=== PATIENT | female | born 1945 | race Caucasian/White ===

== ENCOUNTER 2018-09-30 23:34 | Inpatient (IN) | payer MEDICARE, MEDICAID ==
[~2018-09-30 23:34] MED LIST: Sodium Chloride 0.9% 10 ML Syringe FLUSH PRN
[2018-09-30] MEDS ORDERED: Ondansetron 4 MG/2 ML SDV IVPUSH ONE (23:40)
[2018-09-30] MEDS ORDERED: Sodium Chloride 0.9% 1,000 ML IV ONE (23:40)
--- NOTE | 2018-10-01 00:03 | EDM.PDOC ---
ED HPI GENERAL MEDICAL PROBLEM - General Chief Complaint: Gastrointestinal Problem Stated Complaint: vomiting Time Seen by Provider: 09/30/18 23:34 Source of Information: Reports: Patient, EMS, EMS Notes Reviewed, Skilled Nursing Records, Old Records, RN Notes Reviewed History Limitations: Reports: Language Barrier, Physical Impairment - History of Present Illness INITIAL COMMENTS - FREE TEXT/NARRATIVE: Pt. presents to ER via EMS. She is a resident at the [facility] with severe CP and presents with cough and vomiting. Staff states that it is not uncommon for the patient to vomit once or twice per day, but they noted what they thought to be rosangela blood in her vomit, and also state that she has had coffee ground emesis as well. Staff states that this all started at 1930 this evening. She has increased cough and noisy breathing, and feel she may have aspirated. She is unable to communicate and subsequently unable to offer any complaints. Staff states that she is otherwise behaving normally. Staff at [facility] relates that the patient had a large BM this AM, and apparently it was normal. Onset: Today Location: Reports: Abdomen - Related Data Allergies Allergy/AdvReac Type Severity Reaction Status Date / Time red (food color) Allergy Cannot Verified 09/30/18 23:37 Remember Home Meds: Home Meds Bisacodyl 10 mg RC ASDIRECTED PRN 08/06/13 [History] Budesonide [Pulmicort] 1 ampule INH BID 08/06/13 [History] Metoclopramide [Reglan] 10 mg PO QID 08/06/13 [History] Montelukast [Singulair] 10 mg PO DAILY 08/06/13 [History] Multivitamin with Minerals [Multivitamins with Minerals] 1 each PO DAILY [History] PHENobarbital 97.2 mg PO DAILY 08/06/13 [History] Sennosides [Senokot] 8.6 mg PO BID 08/06/13 [History] Acetaminophen [Acetaminophen 8 Hour] 650 mg PO Q4HR PRN 10/01/18 [History] Albuterol/Ipratropium [DuoNeb 3.0-0.5 MG/3 ML] 3 ml INH Q4HR PRN 10/01/18 [ History] Albuterol/Ipratropium [DuoNeb 3.0-0.5 MG/3 ML] 3 ml INH QID 10/01/18 [History] Bisacodyl 5 mg PO ASDIRECTED PRN 10/01/18 [History] Dextran 70/Hypromellose [Artificial Tears] 1 each OP ASDIRECTED PRN 10/01/18 [ History] Dimethicone [Cavilon Durable Barrier] 92 gm TP BID 10/01/18 [History] Magnesium Hydroxide [Milk of Magnesia] 15 ml PO ASDIRECTED PRN 10/01/18 [History ] Polyethylene Glycol 3350 [MiraLAX] 17 gm PO DAILY 10/01/18 [History] Ranitidine [Zantac] 150 mg PO BID 10/01/18 [History] ED ROS GENERAL - Review of Systems Review Of Systems: Unable To Obtain ED EXAM, GENERAL - Physical Exam Exam: See Below Exam Limited By: No Limitations General Appearance: Alert, WD/WN, No Apparent Distress Head: Atraumatic, Normocephalic Neck: Normal Inspection, Supple, Full Range of Motion Respiratory/Chest: No Respiratory Distress, No Accessory Muscle Use, Decreased Breath Sounds, Wheezing Cardiovascular: Normal Peripheral Pulses, Regular Rate, Rhythm, No Edema, No JVD , No Murmur Peripheral Pulses: 4+: Radial (R) GI/Abdominal: Soft, No Organomegaly, Distended, Rigid, Other (diminished BS, protuberant abdomen.) Rectal (Female) Exam: Normal Exam, Normal Rectal Tone, Heme + Stool Back Exam: Normal Inspection, Full Range of Motion Extremities: Normal Inspection, Normal Range of Motion, Non-Tender, No Pedal Edema, Normal Capillary Refill Neurological: Other (Unable to communicate. Withdraws from pain. Profound intellectual disabilities.) Skin Exam: Warm, Dry, Intact, Normal Color, No Rash Lymphatic: No Adenopathy Course - Vital Signs Last Recorded V/S: Last Vital Signs Temp 36.5 C 09/30/18 23:37 Pulse 102 H 09/30/18 23:37 Resp 24 H 09/30/18 23:37 BP 154/79 H 09/30/18 23:37 Pulse Ox 94 L 09/30/18 23:37 - Orders/Labs/Meds Orders: Active Orders 24 hr Category Date Time Status Chest 1V Frontal [CR] Stat Exams 09/30/18 23:37 Taken Chest Abdomen Pelvis w Cont [CT] Stat Exams 09/30/18 23:38 Ordered CULTURE BLOOD [BC] Stat Lab 09/30/18 23:42 Received CULTURE BLOOD [BC] Stat Lab 09/30/18 23:42 Results GASTRO OCCULT BLOOD,POC [POC] Stat Lab 10/01/18 00:33 Ordered Sodium Chloride 0.9% [Normal Saline] 1,000 ml Med 09/30/18 23:40 Active IV ONETIME Sodium Chloride 0.9% [Saline Flush] Med 09/30/18 23:34 Active 10 ml FLUSH ASDIRECTED PRN Blood Culture x2 Reflex Set [OM.PC] Stat Oth 09/30/18 23:41 Ordered Peripheral IV Insertion Adult [OM.PC] Routine Oth 09/30/18 23:35 Ordered Medication Orders Sodium Chloride (Normal Saline) 1,000 mls @ 125 mls/hr IV ONETIME ONE Stop: 10/01/18 07:39 Last Admin: 10/01/18 00:05 Dose: 125 mls/hr Sodium Chloride (Saline Flush) 10 ml FLUSH ASDIRECTED PRN PRN Reason: Keep Vein Open Labs: Laboratory Tests 10/01/18 10/01/18 10/01/18 Range/Units 00:04 00:04 00:04 WBC 11.5 H (4.0-10.0) x10^3/uL RBC 4.81 (4.00-5.50) x10^6/uL Hgb 14.6 D (12.0-16.0) g/dL Hct 44.6 (33.0-47.0) % MCV 92.7 D (78.0-93.0) fL MCH 30.4 (26.0-32.0) pg MCHC 32.7 (32.0-36.0) g/dL RDW Coeff of Viola 13.9 (10.0-15.0) % Plt Count 280 (130-400) x10^3/uL Neut % (Auto) 91.7 H (50.0-80.0) % Lymph % (Auto) 5.1 L (25.0-50.0) % Mckenzie % (Auto) 2.7 (2.0-11.0) % Eos % (Auto) 0.3 (0.0-4.0) % Baso % (Auto) 0.2 (0.2-1.2) % PT 10.8 (10.0-12.8) SEC INR 1.0 L (2.0-3.5) Sodium 144 (136-145) mmol/L Potassium 4.3 (3.5-5.1) mmol/L Chloride 105 (98-107) mmol/L Carbon Dioxide 27 (21-32) mmol/L Anion Gap 16.3 (10-20) mmol/L BUN 21 H (7-18) mg/dL Creatinine 0.6 (0.55-1.02) mg/dL Est Cr Clr Drug Dosing TNP Estimated GFR (MDRD) > 60 Glucose 145 H (74-106) mg/dL Lactic Acid (0.4-2.0) mmol/L Calcium 9.6 (8.5-10.1) mg/dL Corrected Calcium 10.24 H (8.5-10.1) mg/dL Phosphorus 3.1 (2.6-4.7) mg/dL Magnesium 2.1 (1.8-2.4) mg/dL Total Bilirubin 0.3 (0.2-1.0) mg/dL AST 32 (15-37) U/L ALT 78 H (14-59) U/L Alkaline Phosphatase 173 H (46-116) U/L C-Reactive Protein 1.3 H (<=0.9) mg/dL Total Protein 8.1 (6.4-8.2) g/dL Albumin 3.2 L (3.4-5.0) g/dL Globulin 4.9 Albumin/Globulin Ratio 0.65 10/01/18 Range/Units 00:04 WBC (4.0-10.0) x10^3/uL RBC (4.00-5.50) x10^6/uL Hgb (12.0-16.0) g/dL Hct (33.0-47.0) % MCV (78.0-93.0) fL MCH (26.0-32.0) pg MCHC (32.0-36.0) g/dL RDW Coeff of Viola (10.0-15.0) % Plt Count (130-400) x10^3/uL Neut % (Auto) (50.0-80.0) % Lymph % (Auto) (25.0-50.0) % Mckenzie % (Auto) (2.0-11.0) % Eos % (Auto) (0.0-4.0) % Baso % (Auto) (0.2-1.2) % PT (10.0-12.8) SEC INR (2.0-3.5) Sodium (136-145) mmol/L Potassium (3.5-5.1) mmol/L Chloride (98-107) mmol/L Carbon Dioxide (21-32) mmol/L Anion Gap (10-20) mmol/L BUN (7-18) mg/dL Creatinine (0.55-1.02) mg/dL Est Cr Clr Drug Dosing Estimated GFR (MDRD) Glucose (74-106) mg/dL Lactic Acid 1.0 (0.4-2.0) mmol/L Calcium (8.5-10.1) mg/dL Corrected Calcium (8.5-10.1) mg/dL Phosphorus (2.6-4.7) mg/dL Magnesium (1.8-2.4) mg/dL Total Bilirubin (0.2-1.0) mg/dL AST (15-37) U/L ALT (14-59) U/L Alkaline Phosphatase (46-116) U/L C-Reactive Protein (<=0.9) mg/dL Total Protein (6.4-8.2) g/dL Albumin (3.4-5.0) g/dL Globulin Albumin/Globulin Ratio Meds: Medications Generic Name Dose Route Start Last Admin Trade Name Freq PRN Reason Stop Dose Admin Sodium Chloride 1,000 mls @ 125 mls/hr 09/30/18 23:40 10/01/18 00:05 Normal Saline IV 10/01/18 07:39 125 mls/hr ONETIME ONE Administration Sodium Chloride 10 ml 09/30/18 23:34 Saline Flush FLUSH ASDIRECTED PRN Keep Vein Open Discontinued Medications Generic Name Dose Route Start Last Admin Trade Name Freq PRN Reason Stop Dose Admin Iopamidol 100 ml 10/01/18 00:55 10/01/18 01:13 Isovue-300 (61%) IVPUSH 10/01/18 00:56 100 ml ONETIME ONE Administration Ondansetron HCl 4 mg 09/30/18 23:40 10/01/18 00:29 Zofran IVPUSH 09/30/18 23:41 4 mg ONETIME ONE Administration - Radiology Interpretation Free Text/Narrative:: Elevated L hemidiaphragm with gastric distention of colon. No obvious infiltrate. Atelectasis of L lower lobe. CT chest, abdomen and pelvis obtained. There was evidence of gastroparesis, colonic ileus, sliding hiatal hernia, diffuse thickening of the distal esophagus. Departure - Departure Time of Disposition: 02:20 Disposition: DC/Tfer to Acute Hospital 02 Clinical Impression: Ileus - Discharge Information Forms: ED Department Discharge - Problem List Review Problem List Initiated/Reviewed/Updated: Yes - My Orders Last 24 Hours: My Active Orders 09/30/18 23:34 Sodium Chloride 0.9% [Saline Flush] 10 ml FLUSH ASDIRECTED PRN 09/30/18 23:35 Peripheral IV Insertion Adult [OM.PC] Routine 09/30/18 23:37 Chest 1V Frontal [CR] Stat 09/30/18 23:38 Chest Abdomen Pelvis w Cont [CT] Stat 09/30/18 23:40 Sodium Chloride 0.9% [Normal Saline] 1,000 ml IV ONETIME 09/30/18 23:41 Blood Culture x2 Reflex Set [OM.PC] Stat 09/30/18 23:42 CULTURE BLOOD [BC] Stat CULTURE BLOOD [BC] Stat 10/01/18 00:33 GASTRO OCCULT BLOOD,POC [POC] Stat - Assessment/Plan Admission H&P: Please use this note as an admission H&P Last 24 Hours: My Active Orders 09/30/18 23:34 Sodium Chloride 0.9% [Saline Flush] 10 ml FLUSH ASDIRECTED PRN 09/30/18 23:35 Peripheral IV Insertion Adult [OM.PC] Routine 09/30/18 23:37 Chest 1V Frontal [CR] Stat 09/30/18 23:38 Chest Abdomen Pelvis w Cont [CT] Stat 09/30/18 23:40 Sodium Chloride 0.9% [Normal Saline] 1,000 ml IV ONETIME 09/30/18 23:41 Blood Culture x2 Reflex Set [OM.PC] Stat 09/30/18 23:42 CULTURE BLOOD [BC] Stat CULTURE BLOOD [BC] Stat 10/01/18 00:33 GASTRO OCCULT BLOOD,POC [POC] Stat Plan: Will admit patient acutely. Dr. Velazquez will see in AM and likely pass to Dr. Summers. Will continue maintenance fluids. She had one episode of emesis on admission, but none for several hours, so we will hold NG tube for now. She will be NPO. There is no evidence of high grade obstruction noted. Repeat labs tomorrow AM. There is no obvious infectious process noted in lungs or abdomen and she is afebrile so we will hold antibiotics. Pt. is a code 2 DNR/DNI.
[2018-10-01 00:40] LABS: CHLORIDE,CL 105 mmol/L (98-107); SODIUM,NA 144 mmol/L (136-145)
[2018-10-01 00:42] LABS: ANION GAP 16.3 mmol/L (10-20)
[2018-10-01] MEDS ORDERED: Iopamidol 612 MG/ML 100 ML Bottle IVPUSH ONE (00:55)
[2018-10-01] MEDS ORDERED: Acetaminophen 325 MG Tab PO PRN ×2 (02:48→10:10)
[2018-10-01] MEDS ORDERED: Albuterol/Ipratropium 3.0-0.5 MG/3 ML Neb Soln INH PRN (02:48)
[2018-10-01] MEDS: Metoclopramide 10 MG/2 ML SDV IVPUSH SCH ×4 (03:11→20:10)
[2018-10-01] MEDS: Pantoprazole 40 MG Vial IVPUSH SCH ×2 (03:15→15:11)
[2018-10-01] MEDS ORDERED: Morphine 4 MG/ML Syringe IVPUSH ONE (04:02)
[2018-10-01] MEDS: NS + KCl 20mEq/L 1,000 ML IV SCH ×2 (07:13→15:02)
[2018-10-01] MEDS: Albuterol/Ipratropium 3.0-0.5 MG/3 ML Neb Soln INH SCH ×4 (07:13→20:08)
--- NOTE | 2018-10-01 07:56 | CR ---
[id number] RAD/RAD Chest PA or AP 1V EXAM: RAD Chest PA or AP 1V INDICATION: WHEEZING, ASPIRATION? COMPARISON: 2013. DISCUSSION: Asymmetric elevated left hemidiaphragm resulting in left lung base vascular crowding and atelectasis. Within limitations of severe scoliosis and elevated left hemidiaphragm, no evidence of aspiration. There is possible cardiomegaly with mild central vascular congestion. Colon demonstrates gaseous distention. IMPRESSION: As above. Souleymane Sierra MD 10/01/18 0755 Thank you for allowing us to participate in the care of your patient.
--- NOTE | 2018-10-01 08:35 | CT ---
[id number] CT/CT Chest Abdomen Pelvis W IV EXAM: CT Chest Abdomen Pelvis W IV CLINICAL DATA: HEMATEMESIS, DIMINISHED BOWEL SOUNDS COMPARISON STUDY: July 2013. FINDINGS: Chest, abdomen, and pelvis: 12 x 9 x 5 mm solid noncalcified left lower lobe pulmonary nodule (series 2 image 33). Finding is nonspecific in etiology. Bibasal subsegmental atelectasis and/or scarring. No mediastinal or hilar lymphadenopathy. Moderate circumferential thickening throughout the distal aspect of the esophagus extending to the gastroesophageal junction. Stomach is dilated and distended with air-fluid level. Colon demonstrates marked gaseous distention without evidence of obstructing mass. No evidence of a small bowel obstruction. No pneumatosis or pneumoperitoneum. Cholelithiasis without evidence of acute cholecystitis. Liver, spleen, pancreas, and adrenal glands are unremarkable. 4 mm calculus in the proximal left ureter just distal to the UPJ. No evidence of obstruction. Kidneys are otherwise unremarkable. Trace free fluid in the dependent recess of the pelvis. Bones and soft tissues: Advanced dextroscoliosis. 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 No acute fracture, compression deformity, or osseous lesion. IMPRESSION: Moderate circumferential wall thickening in the distal esophagus, nonspecific but suggesting esophagitis. Gaseous distention and dilation of the stomach with an air-fluid level. Gaseous distention of the colon without obstructing mass identified. Trace free fluid in the dependent recess of the pelvis, nonspecific in etiology. Other findings are described above. Souleymane Sierra MD 10/01/18 0833 Thank you for allowing us to participate in the care of your patient.
[2018-10-01] MEDS: PHENobarbital 64.8 MG Tab PO SCH (09:11)
[2018-10-01] MEDS ORDERED: Budesonide 0.5 MG/2 ML Neb Susp INH SCH (09:45)
[2018-10-01] MEDS ORDERED: Magnesium Hydroxide 400 MG/5 ML Susp 30 ML Cup PO PRN (10:10)
[2018-10-01] MEDS ORDERED: Dextran 70/Hypromellose/PF Ophth Soln 0.9 ML UD EYELF PRN (10:10)
[2018-10-01] MEDS ORDERED: Bisacodyl 5 MG Tab PO PRN (10:10)
[2018-10-01] MEDS ORDERED: Bisacodyl 10 MG Supp RECTAL PRN ×3 (10:10→11:45)
--- NOTE | 2018-10-01 10:21 | PCM.HP ---
H&P History of Present Illness - General Date of Service: 10/01/18 Admit Problem/Dx: Admission Diagnosis/Problem Admission Diagnosis/Problem Ileus Source of Information: EMS, Long-Term Records, Provider History Limitations: Reports: Physical Impairment - History of Present Illness Initial Comments - Free Text/Narative: Chief complaint: Vomiting History of present illness: Patient was sent from retirement to ER for possible hematemesis. She vomits and coughs a lot at baseline. She has profound intellectual disability plus dementia and cerebral palsy. She been throwing up a bit more in the noticed a little bit of blood and this appeared bit brown. No fever or diarrhea or change otherwise in her baseline. On arrival in the ER they did Hemoccult of gastric and rectal contents which was negative for blood. She was not anemic. Vomiting seem to slow in the ER with some treatment there. She had CT abdomen and chest pelvis which were pretty unrevealing for any real acute source. She had an ileus which appears been present on past films. She has gastroparesis which also looks like it's chronic is she is on Reglan four times a day at baseline. There is diffuse thickening of the distal esophagus NOS. Past medical history: Profound intellectual disability, seizure disorder, dementia, osteoporosis, hiatal hernia, past fractures, endometrial carcinoma, decubitus ulcer, constipation, cerebral palsy, asthma, Medication list unresolved in EPIC: Pulmicort, Atrovent, Proventil, Reglan, phenobarbital, Atrovent, Zantac, Vanda lax, Singulair, and teaser, senna, Asmanex , Flovent, takes citrate, DuoNeb, Prilosec, Duca lax, milk of magnesia. Allergies: Red dye Social history: half-way resident, nonsmoker. Family history: Noncontributory Review of systems: Unable to obtain beyond above. Physical exam: Vital signs are normal, she is laying in bed position on her right side. She is nonverbal. Eyes are open spontaneously, no acute distress, oral mucosa is pink and a bit dry. There is a bit of brown material increases of her tongue. I don't see any gross oral lacerations. Heart and lungs are clear to auscultation, abdomen mild distended, appears nontender and a nonverbal patient. Chimneys warm well perfused, trace edema. Assessment and plan: Report of possible hematemesis. Hemoglobin is stable, Hemoccult was negative, appears to be from some local trauma possibly in the mouth. Recheck CBC in a.m. , monitor for any recurrence. Has a seizure history but no recent seizure activity noted as cause of new oral trauma. Continue acid suppressing medicine for some esophagitis NOS seen by CT. Regarding vomiting it appears improved. Resume home Reglan. Appears to have vomiting, gastroparesis and maybe chronic ileus at baseline. Advance diet to clear liquids, continue maintenance fluids for now, advance to her baseline pure diet as tolerated. Recheck chemistry in a.m. - Related Data Allergies/Adverse Reactions: Allergies Allergy/AdvReac Type Severity Reaction Status Date / Time red dye Allergy Unknown Other Verified 10/01/18 09:24 Home Medications: Home Meds Bisacodyl 10 mg RC DAILY PRN 08/06/13 [History] Metoclopramide [Reglan] 10 mg PO QID 08/06/13 [History] Montelukast [Singulair] 10 mg PO DAILY 08/06/13 [History] Multivitamin with Minerals [Multivitamins with Minerals] 1 each PO DAILY [History] PHENobarbital 97.2 mg PO DAILY 08/06/13 [History] Sennosides [Senokot] 17.2 mg PO BID 08/06/13 [History] Acetaminophen [Tylenol] 650 mg PO Q4H PRN 10/01/18 [History] Albuterol/Ipratropium [DuoNeb 3.0-0.5 MG/3 ML] 3 ml INH Q4HR PRN 10/01/18 [ History] Albuterol/Ipratropium [DuoNeb 3.0-0.5 MG/3 ML] 3 ml INH QID 10/01/18 [History] Bisacodyl 5 mg PO DAILY PRN 10/01/18 [History] Bisacodyl [Laxative Suppository] 10 mg RC Q48H PRN 10/01/18 [History] Budesonide [Pulmicort] 0.5 mg NEB BID 10/01/18 [History] Dextran 70/Hypromellose [Artificial Tears] 1 - 2 drop EYELF ASDIRECTED PRN 10/01 [History] Magnesium Hydroxide [Milk of Magnesia] 15 ml PO Q3D PRN 10/01/18 [History] Miconazole [Miconazole 2% Crm] 1 applic TOP BID 10/01/18 [History] Polyethylene Glycol 3350 [MiraLAX] 17 gm PO DAILY 10/01/18 [History] Ranitidine [Zantac] 150 mg PO BID 10/01/18 [History] Past Medical History Respiratory History: Reports: Asthma Gastrointestinal History: Reports: Chronic Constipation, Other (See Below) Other Gastrointestinal History: dysphagia, dyspepsia Musculoskeletal History: Reports: Osteoporosis Neurological History: Reports: Cerebral Palsy, Seizure, Other (See Below) Other Neuro History: dementia, profound intellectual disabilities, convulsions Social & Family History - Family History Family Medical History: Noncontributory - Tobacco Use Smoking Status *Q: Current Status Unknown Tobacco Use Comment: phucwjosé miguel; patient has profound learning disability from [employer] Second Hand Smoke Exposure: No - Caffeine Use Caffeine Use: Reports: None - Recreational Drug Use Recreational Drug Use: No H&P Review of Systems - Review of Systems: Review Of Systems: See Below Exam - Exam Exam: See Below - Vital Signs Vital Signs: Last Vital Signs Temp 37.1 C 10/01/18 05:59 Pulse 102 H 10/01/18 05:59 Resp 20 10/01/18 05:59 BP 139/59 L 10/01/18 05:59 Pulse Ox 91 L 10/01/18 07:21 Weight: 49.243 kg - Patient Data Lab Results Last 24 hrs: Laboratory Results - last 24 hr 10/01/18 10/01/18 10/01/18 Range/Units 00:04 00:04 00:04 WBC 11.5 H (4.0-10.0) x10^3/uL RBC 4.81 (4.00-5.50) x10^6/uL Hgb 14.6 D (12.0-16.0) g/dL Hct 44.6 (33.0-47.0) % MCV 92.7 D (78.0-93.0) fL MCH 30.4 (26.0-32.0) pg MCHC 32.7 (32.0-36.0) g/dL RDW Coeff of Viola 13.9 (10.0-15.0) % Plt Count 280 (130-400) x10^3/uL Neut % (Auto) 91.7 H (50.0-80.0) % Lymph % (Auto) 5.1 L (25.0-50.0) % [place] % (Auto) 2.7 (2.0-11.0) % Eos % (Auto) 0.3 (0.0-4.0) % Baso % (Auto) 0.2 (0.2-1.2) % Add Manual Diff PT 10.8 (10.0-12.8) SEC INR 1.0 L (2.0-3.5) Sodium 144 (136-145) mmol/L Potassium 4.3 (3.5-5.1) mmol/L Chloride 105 (98-107) mmol/L Carbon Dioxide 27 (21-32) mmol/L Anion Gap 16.3 (10-20) mmol/L BUN 21 H (7-18) mg/dL Creatinine 0.6 (0.55-1.02) mg/dL Est Cr Clr Drug Dosing TNP Estimated GFR (MDRD) > 60 Glucose 145 H (74-106) mg/dL Lactic Acid (0.4-2.0) mmol/L Calcium 9.6 (8.5-10.1) mg/dL Corrected Calcium 10.24 H (8.5-10.1) mg/dL Phosphorus 3.1 (2.6-4.7) mg/dL Magnesium 2.1 (1.8-2.4) mg/dL Total Bilirubin 0.3 (0.2-1.0) mg/dL AST 32 (15-37) U/L ALT 78 H (14-59) U/L Alkaline Phosphatase 173 H (46-116) U/L C-Reactive Protein 1.3 H (<=0.9) mg/dL Total Protein 8.1 (6.4-8.2) g/dL Albumin 3.2 L (3.4-5.0) g/dL Globulin 4.9 Albumin/Globulin Ratio 0.65 10/01/18 10/01/18 10/01/18 Range/Units 00:04 06:21 06:21 WBC 10.8 H (4.0-10.0) x10^3/uL RBC 4.40 (4.00-5.50) x10^6/uL Hgb 13.3 (12.0-16.0) g/dL Hct 41.2 (33.0-47.0) % MCV 93.6 H (78.0-93.0) fL MCH 30.2 (26.0-32.0) pg MCHC 32.3 (32.0-36.0) g/dL RDW Coeff of Viola 13.9 (10.0-15.0) % Plt Count 228 (130-400) x10^3/uL Neut % (Auto) 89.0 H (50.0-80.0) % Lymph % (Auto) 6.0 L (25.0-50.0) % [place] % (Auto) 5.0 (2.0-11.0) % Eos % (Auto) 0.0 (0.0-4.0) % Baso % (Auto) 0.0 L (0.2-1.2) % Add Manual Diff Yes PT (10.0-12.8) SEC INR (2.0-3.5) Sodium (136-145) mmol/L Potassium (3.5-5.1) mmol/L Chloride (98-107) mmol/L Carbon Dioxide (21-32) mmol/L Anion Gap (10-20) mmol/L BUN (7-18) mg/dL Creatinine (0.55-1.02) mg/dL Est Cr Clr Drug Dosing Estimated GFR (MDRD) Glucose (74-106) mg/dL Lactic Acid 1.0 0.7 (0.4-2.0) mmol/L Calcium (8.5-10.1) mg/dL Corrected Calcium (8.5-10.1) mg/dL Phosphorus (2.6-4.7) mg/dL Magnesium (1.8-2.4) mg/dL Total Bilirubin (0.2-1.0) mg/dL AST (15-37) U/L ALT (14-59) U/L Alkaline Phosphatase (46-116) U/L C-Reactive Protein (<=0.9) mg/dL Total Protein (6.4-8.2) g/dL Albumin (3.4-5.0) g/dL Globulin Albumin/Globulin Ratio Result Diagrams: 10/01/18 06:21 10/01/18 00:04 Jovany Results Last 24 hrs: Microbiology 10/01/18 00:11 Anaerobic Blood Culture - Final Blood - Venous - Lab Draw Problem List Initiated/Reviewed/Updated: Yes Orders Last 24hrs: Active Orders 24 hr Category Date Time Status Patient Status [ADT] Routine ADT 10/01/18 02:19 Active Bedrest [RC] 08,20 Care 10/01/18 02:46 Active Intake and Output [RC] QSHIFT Care 10/01/18 02:46 Active Vital Signs [RC] 06,10,14,18,22,02 Care 10/01/18 02:46 Active Clear Liquid Diet [DIET] Diet 10/01/18 Lunch Ordered Nothing Per Oral Diet [DIET] Diet 10/01/18 Breakfast Active BASIC METABOLIC PANEL,BMP [CHEM] AM Lab 10/02/18 05:11 Ordered CBC WITH AUTO DIFF [HEME] AM Lab 10/02/18 05:11 Ordered CULTURE BLOOD [BC] Stat Lab 09/30/18 23:42 Received CULTURE BLOOD [BC] Stat Lab 09/30/18 23:42 Results CULTURE MRSA SURVEY [RM] Routine Lab 10/01/18 04:46 Received Acetaminophen [Tylenol] Med 10/01/18 10:10 Ordered 650 mg PO Q4H PRN Acetaminophen [Tylenol] Med 10/01/18 02:48 Active 650 mg PO Q4HR PRN Albuterol/Ipratropium [DuoNeb 3.0-0.5 MG/3 ML] Med 10/01/18 02:48 Active 3 ml INH Q4H PRN Albuterol/Ipratropium [DuoNeb 3.0-0.5 MG/3 ML] Med 10/01/18 07:00 Active 3 ml INH QIDRT Bisacodyl [Dulcolax] Med 10/01/18 10:10 Ordered 10 mg .XX DAILY PRN Bisacodyl [Dulcolax] Med 10/01/18 10:10 Ordered 10 mg .XX Q48H PRN Bisacodyl [Dulcolax] Med 10/01/18 10:10 Ordered 5 mg PO DAILY PRN Budesonide [Pulmicort] Med 10/01/18 11:00 Active 0.5 mg INH BIDRT Budesonide [Pulmicort] Med 10/01/18 20:00 Ordered 0.5 mg NEB BID Dextran 70/Hypromellose [Artificial Tears] Med 10/01/18 10:10 Ordered 1 - 2 drop EYELF ASDIRECTED PRN Magnesium Hydroxide [Milk of Magnesia] Med 10/01/18 10:10 Ordered 15 ml PO Q3D PRN Metoclopramide [Reglan] Med 10/01/18 12:00 Ordered 10 mg PO QID Metoclopramide [Reglan] Med 10/01/18 03:00 Active 5 mg IVPUSH Q6H Miconazole [Miconazole 2% Crm] Med 10/01/18 20:00 Ordered 1 applic TOP BID Miconazole [Miconazole 2% Vaginal] Med 10/01/18 09:45 Active 0 gm TOP BID Montelukast [Singulair] Med 10/02/18 08:00 Ordered 10 mg PO DAILY Multivitamin with Minerals [Multivitamins with Minerals Med 10/02/18 08:00 Ordered ] 1 each PO DAILY NS + KCl 20mEq/L [Normal Saline with 20 mEq KCl] 1,000 Med 10/01/18 03:00 Active ml IV ASDIRECTED PHENobarbital Med 10/01/18 08:00 Active 97.2 mg PO DAILY Pantoprazole [ProTONIX IV] Med 10/01/18 03:00 Active 40 mg IVPUSH Q12H Polyethylene Glycol 3350 [MiraLAX] Med 10/02/18 08:00 Ordered 17 gm PO DAILY Ranitidine [Zantac] Med 10/01/18 20:00 Ordered 150 mg PO BID Sennosides [Senna] Med 10/01/18 20:00 Ordered 17.2 mg PO BID Sodium Chloride 0.9% [Saline Flush] Med 09/30/18 23:34 Active 10 ml FLUSH ASDIRECTED PRN Blood Culture x2 Reflex Set [OM.PC] Stat Oth 09/30/18 23:41 Ordered Peripheral IV Insertion Adult [OM.PC] Routine Oth 09/30/18 23:35 Ordered Medication Orders Acetaminophen (Tylenol) 650 mg PO Q4HR PRN PRN Reason: Pain Acetaminophen (Tylenol) 650 mg PO Q4H PRN PRN Reason: Pain (mild 1-3) Albuterol/Ipratropium (Duoneb 3.0-0.5 Mg/3 Ml) 3 ml INH Q4H PRN PRN Reason: Wheezing Albuterol/Ipratropium (Duoneb 3.0-0.5 Mg/3 Ml) 3 ml INH QIDRT [facility] Last Admin: 10/01/18 07:13 Dose: 3 ml Bisacodyl (Dulcolax) 10 mg .XX Q48H PRN PRN Reason: Constipation Bisacodyl (Dulcolax) 5 mg PO DAILY PRN PRN Reason: Constipation Bisacodyl (Dulcolax) 10 mg .XX DAILY PRN PRN Reason: Constipation Budesonide (Pulmicort) 0.5 mg INH BIDRT [place] Budesonide (Pulmicort) 0.5 mg NEB BID [place] Potassium Chloride/Sodium Chloride (Normal Saline With 20 Meq Kcl) 1,000 mls @ 100 mls/hr IV ASDIRECTED [facility] Last Admin: 10/01/18 07:13 Dose: 100 mls/hr Magnesium Hydroxide (Milk Of Magnesia) 15 ml PO Q3D PRN PRN Reason: Constipation Metoclopramide HCl (Reglan) 5 mg IVPUSH Q6H [facility] Last Admin: 10/01/18 09:05 Dose: 5 mg Admin: 10/01/18 03:11 Dose: 5 mg Metoclopramide HCl (Reglan) 10 mg PO QID [facility] Miconazole (Miconazole 2% Vaginal) 0 gm TOP BID [facility] Montelukast Sodium (Singulair) 10 mg PO DAILY [facility] Non-Formulary Medication (Dextran 70/Hypromellose [Artificial Tears]) 1 - 2 drop EYELF ASDIRECTED PRN PRN Reason: Dry Eyes Non-Formulary Medication (Miconazole [Miconazole 2% Crm]) 1 applic TOP BID [facility] Non-Formulary Medication (Multivitamin With Minerals [Multivitamins With Minerals]) 1 each PO DAILY [facility] Non-Formulary Medication (Ranitidine [Zantac]) 150 mg PO BID [facility] Pantoprazole Sodium (Protonix Iv) 40 mg IVPUSH Q12H [facility] Last Admin: 10/01/18 03:15 Dose: 40 mg Phenobarbital (Phenobarbital) 97.2 mg PO DAILY [facility] Last Admin: 10/01/18 09:11 Dose: Not Given Polyethylene Glycol (Miralax) 17 gm PO DAILY [facility] Senna (Senna) 17.2 mg PO BID [facility] Sodium Chloride (Saline Flush) 10 ml FLUSH ASDIRECTED PRN PRN Reason: Keep Vein Open Last Admin: 10/01/18 03:24 Dose: 10 ml
[2018-10-01] MEDS: Budesonide 0.5 MG/2 ML Neb Susp INH SCH ×2 (10:57→20:08)
[2018-10-01] MEDS: Miconazole 2% Vaginal Crm 45 GM Tube TOP SCH ×2 (11:39→20:09)
[2018-10-01] MEDS: Multivitamin, Stress Formula with Zinc Tab PO SCH (12:40)
[2018-10-01] MEDS: Metoclopramide 10 MG Tab PO SCH ×2 (18:24→20:08)
[2018-10-01] MEDS ORDERED: Budesonide 0.5 MG/2 ML Neb Susp NEB SCH (20:00)
[2018-10-01] MEDS ORDERED: MICONAZOLE TOP SCH (20:00)
[2018-10-01] MEDS: Famotidine 20 MG Tab PO SCH (20:08)
[2018-10-01] MEDS: Sennosides 8.6 MG Tab PO SCH (20:08)
[2018-10-02] MEDS: Metoclopramide 10 MG/2 ML SDV IVPUSH SCH ×2 (04:18→09:28)
[2018-10-02] MEDS: Pantoprazole 40 MG Vial IVPUSH SCH (05:16)
[2018-10-02] MEDS: Albuterol/Ipratropium 3.0-0.5 MG/3 ML Neb Soln INH SCH ×2 (06:08→12:07)
[2018-10-02] MEDS: Budesonide 0.5 MG/2 ML Neb Susp INH SCH (06:08)
[2018-10-02] MEDS: Metoclopramide 10 MG Tab PO SCH ×2 (06:08→12:06)
[2018-10-02 06:49] LABS: CHLORIDE,CL 112 mmol/L (98-107); SODIUM,NA 147 mmol/L (136-145)
[2018-10-02] MEDS: Miconazole 2% Vaginal Crm 45 GM Tube TOP SCH (07:59)
[2018-10-02] MEDS: Sennosides 8.6 MG Tab PO SCH (07:59)
[2018-10-02] MEDS: Famotidine 20 MG Tab PO SCH (07:59)
[2018-10-02] MEDS: Multivitamin, Stress Formula with Zinc Tab PO SCH (07:59)
[2018-10-02] MEDS ORDERED: Polyethylene Glycol 3350 Powder 17 GM Packet PO SCH (08:00)
[2018-10-02] MEDS ORDERED: Montelukast 10 MG Tab PO SCH (08:00)
[2018-10-02] MEDS: PHENobarbital 64.8 MG Tab PO SCH (08:00)
--- NOTE | 2018-10-02 18:05 | DISCH ---
PRIMARY DISCHARGE DIAGNOSES: 1. Vomiting with gastroparesis known history, but concern for hematemesis. However, occult testing were negative and hemoglobin remained stable. 2. Profound mental retardation. 3. History of asthma, stable without exacerbation. 4. Questionable esophagitis by CT. 5. Cerebral palsy. 6. History of seizures with no recent seizures. 7. Mild hypernatremia probably due to poor oral intake. 8. Concern for aspiration, but no sign of pneumonia. The patient would not be able to participate in a speech therapy program given her intellectual delays. REASON FOR ADMISSION: On the date of admission, this 73-year-old female was sent over from [facility] due to possibly vomiting up some blood. She does vomit and cough quite a bit at baseline and I did discuss this with Dr. Summers, her primary care. She otherwise did not appear to be in any severe pain. She had a CT of the abdomen, which did not show any acute source, but did question some esophagitis changes. She was given IV Reglan. She had no further vomiting. She had a sliding hiatal hernia also noted on her CT. She was taking in some clear liquids. She was alert and awake, but there was concern she might have trouble swallowing. She was not hypoxic and not requiring any oxygen. Her blood pressures were not low. She had some mild tachycardia, but that improved by discharge. She had not had a bowel movement during her stay, but her stay was less than 48 hours. She was receiving IV fluids until discharge. DISCHARGING LABS: Include her white count normal at 10, it was slightly elevated at 11.5 on admission; hemoglobin 12.8, down from 14.6; platelets 260. Sodium 147, potassium 4, chloride 112, bicarb 24, BUN 17, creatinine 0.5, glucose 112, calcium 8.4. Alkaline phosphatase was mildly elevated on admission at 173, but not rechecked. The patient was given some IV Protonix. She was continued on her oral Pepcid. During her stay, she was getting her regular nebulizers. She also had some rash and itchy area in her ally area, so was given some miconazole vaginal cream. The patient did not receive DVT prophylaxis, but again was admitted less than 48 hours. DISCHARGE PLANS AND INSTRUCTIONS: She is going back to [facility]. No further lab monitoring was ordered. She had actually not had labs in like 4 years through the clinic. Did discuss with Dr. Summers, who agrees that palliative care or hospice would be indicated for her. She should resume her same Reglan at [facility]. She should continue the miconazole cream in the ally area. Can consider enema when [facility], but I do not feel like having a bowel movement here is mandatory to her return back as she does seem to be basically at baseline. PHYSICAL EXAMINATION: Vital Signs: Discharge vitals include temperature 98.7, pulse 94, blood pressure 155/83, respiratory rate 20, O2 of 94% on room air. General: She is in no acute distress. She is resting in bed. She does move her hands around in sort of a flapping pattern, but did not appear to be specifically pushing me away. Heart: When I did her heart exam, it was regular rate and rhythm. S1, S2 without murmur. Lungs: Lung sounds did show some slight expiratory wheezing more centrally, but in the bases and peripherally, there was no wheezing and did have normal respiratory sounds, but limited effort. Abdomen: Distended, but she had positive active bowel sounds and was nontender. Mental Status: She is completely disoriented, but her eyes are open and she is alert, but she is nonverbal. Extremities: Did have shorter legs with booty supports in place on both feet. No edema. MKA: 10/02/2018 12:07:04 MODL: 10/02/2018 17:59:44 /[id number]
== END 2018-10-02 13:53 | DRG 378 ==
LOC: VM.ED 23:34 → VM.MS 10-01 02:20
PROVIDERS: ADMIT Family Medicine; ATTEND Family Medicine
DX: K92.0 Hematemesis (principal); F73 Profound intellectual disabilities; E87.0 Hyperosmolality and hypernatremia; K56.7 Ileus, unspecified; K20.9 Esophagitis, unspecified; F03.90 Unspecified dementia, unspecified severity, without behavioral disturbance, psychotic disturbance, mood disturbance, and anxiety; K31.84 Gastroparesis; G40.909 Epilepsy, unspecified, not intractable, without status epilepticus; M81.0 Age-related osteoporosis without current pathological fracture; R05 Cough; J45.909 Unspecified asthma, uncomplicated; K59.09 Other constipation; K44.9 Diaphragmatic hernia without obstruction or gangrene; K22.8 Other specified diseases of esophagus; R11.10 Vomiting, unspecified; R00.0 Tachycardia, unspecified; Z91.018 Allergy to other foods; Z79.899 Other long term (current) drug therapy; Z91.041 Radiographic dye allergy status; Z66 Do not resuscitate; G80.9 Cerebral palsy, unspecified
CPT/HCPCS: 36415; 71045; 71260; 74177; 80048; 80053; 82271; 82272; 83605; 83735; 84100; 85025; 85610; 86140; 87040; 94640; 94760; 96361; 96374; 99284-GF; 99285-25; A9270-GY; C9113; J2270; J2405; J2765; J3480; J7030; J7620-GY; Q9967